=== PATIENT | male | born 1940 | race Caucasian/White ===

== ENCOUNTER → 2017-04-26 | Outpatient (CLI) | payer OTHER ==
[~2017-04-26] MED LIST: ASPI325T39 PO; ATOR10TA88 PO; HYDR25TA4 PO; POTA10CA28 PO; QUIN40TA18 PO
[2017-04-26 13:05] LABS: ALT/SGPT 56 U/L (12-78); AST/SGOT 155 U/L (15-37); BLOOD UREA NITROGEN 11 mg/dl (7-18); BUN/CREATININE RATIO 22.6 (10-20); CALCIUM 8.8 mg/dl (8.5-10.1); CARBON DIOXIDE 30 mmol/L (21-32); CHLORIDE 97 mmol/L (98-107); GLUCOSE 72 mg/dl (70-99); POTASSIUM 3.7 mmol/L (3.5-5.1); SODIUM 134 mmol/L (136-145)
[2017-04-26 13:06] LABS: ALB/GLOB RATIO 0.4 (0.9-2); ALKALINE PHOSPHATASE 386 U/L (45-117); CHOLESTEROL 111 mg/dl (0-200); CHOLESTEROL/HDL RATIO 5.6; HDL CHOLESTEROL 20 mg/dl; LDL CHOLESTEROL CALCULATED 76 mg/dl; TRIGLYCERIDES 73 mg/dl (0-150); VERY LOW DENSITY LIPOPROT CALC 15 mg/dl
[2017-04-27 14:20] LABS: ALBUMIN 2.1 G/DL (3.8-4.8); GAMMA GLOBULIN 1.3 G/DL (0.8-1.7); IMMUNOFIXATION IGA SERUM 630 MG/DL (81-463); IMMUNOFIXATION IGG SERUM 1290 MG/DL (694-1618); IMMUNOFIXATION IGM SERUM 154 MG/DL (48-271); TOTAL PROTEIN 5.7 G/DL (6.2-8.3)
== END | disposition home or self-care (01) ==
LOC: C.LABPVFM 07:08
PROVIDERS: ATTEND Family Medicine
DX: E78.5 Hyperlipidemia, unspecified (principal); E87.6 Hypokalemia; R77.1 Abnormality of globulin; I10 Essential (primary) hypertension

== ENCOUNTER → 2017-05-12 | Outpatient (CLI) | payer OTHER ==
--- NOTE | 2017-05-12 10:02 | DIAGNOSTIC IMAGING REPORT ---
CHEST 2 VIEWS ROUTINE CLINICAL HISTORY: 76 years-old Male presenting with ELEVATED BILIRUBIN EDEMA. TECHNIQUE: PA and lateral views of the chest were obtained. COMPARISON: None. FINDINGS: Atherosclerosis of aortic arch. Cardiac silhouette normal in size. Elevation of the bilateral hemidiaphragms, greater on the right. Minimal right basilar opacity likely with trace right pleural effusion. No pneumothorax. Degenerative changes of the thoracic spine. Cholecystectomy clips may be present IMPRESSION: 1. Minimal right basilar opacity likely atelectasis with trace right pleural effusion. Electronically signed by: Chandu Doan M.D. 05/12/2017 10:01 AM Dictated Date/Time: 05/12/2017 10:00 AM
--- NOTE | 2017-05-12 10:06 | DIAGNOSTIC IMAGING REPORT ---
KUB HISTORY: ELEVATED BILIRUBIN . EDEMA COMPARISON: None. FINDINGS: A few mildly distended gas-filled loops of small bowel within the right side the abdomen and a nondistended gas-filled stomach. Degenerative changes and mild levoscoliosis within the lumbar spine. No renal calculi. No ureteral calculi. No pneumoperitoneum or pneumatosis. IMPRESSION: A few mildly distended gas-filled loops of small bowel at the right side the abdomen and a nondistended gas-filled stomach. This is nonspecific but favors a mild ileus. A partial small bowel obstruction could also have a similar appearance in the appropriate clinical setting. Electronically signed by: Darrion Moreno M.D. 05/12/2017 10:05 AM Dictated Date/Time: 05/12/2017 10:03 AM
[2017-05-12 12:07] LABS: BASO % 0.2 %; BASO ABS # 0.04 K/uL (0-0.2); COMPLETE YES; EOS % 0.4 %; IG% 0.6 %; LYMPH % 6.3 %; LYMPH ABS # 1.21 K/uL (1.2-3.4); MEAN CELL VOLUME 98.8 fL (80-100); MEAN CORPUSCULAR HEMOGLOBIN 34.8 pg (25-34); MEAN CORPUSCULAR HGB CONC 35.2 g/dl (32-36); MEAN PLATELET VOLUME 10.6 fL (7.4-10.4); MONO % 12.5 %; PLATELET COUNT 211 K/uL (130-400); RED BLOOD COUNT 4.86 M/uL (4.7-6.1); WHITE BLOOD COUNT 19.07 K/uL (4.8-10.8)
[2017-05-12 12:49] LABS: ALT/SGPT 58 U/L (12-78); AST/SGOT 158 U/L (15-37); BLOOD UREA NITROGEN 18 mg/dl (7-18); BUN/CREATININE RATIO 27.4 (10-20); CALCIUM 9.1 mg/dl (8.5-10.1); CARBON DIOXIDE 27 mmol/L (21-32); CHLORIDE 99 mmol/L (98-107); CREATININE 0.65 mg/dl (0.60-1.40); GLUCOSE 134 mg/dl (70-99); POTASSIUM 4.2 mmol/L (3.5-5.1); SODIUM 136 mmol/L (136-145)
[2017-05-12 12:51] LABS: LYME DISEASE AB IGG POS (NEG); LYME DISEASE AB IGM EQUIVOCAL (NEG)
[2017-05-12 12:59] LABS: ALB/GLOB RATIO 0.4 (0.9-2); ALKALINE PHOSPHATASE 301 U/L (45-117)
[2017-05-17 04:46] LABS: 18KDIGG BAND REACTIVE (NONREACTIVE); 23KDIGG BAND REACTIVE (NONREACTIVE); 23KDIGM BAND REACTIVE (NONREACTIVE); 28KDIGG BAND NONREACTIVE (NONREACTIVE); 30KDIGG BAND NONREACTIVE (NONREACTIVE); 39KDIGG BAND REACTIVE (NONREACTIVE); 39KDIGM BAND NONREACTIVE (NONREACTIVE); 41KDIGG BAND REACTIVE (NONREACTIVE); 41KDIGM BAND REACTIVE (NONREACTIVE); 45KDIGG BAND REACTIVE (NONREACTIVE); 58KDIGG BAND REACTIVE (NONREACTIVE); 66KDIGG BAND REACTIVE (NONREACTIVE); 93KDIGG BAND NONREACTIVE (NONREACTIVE)
== END | disposition home or self-care (01) ==
LOC: C.RADPV 09:35
PROVIDERS: ATTEND Family Medicine
DX: R60.9 Edema, unspecified (principal); R17 Unspecified jaundice; R74.8 Abnormal levels of other serum enzymes

== ENCOUNTER → 2017-05-17 | Outpatient (CLI) | payer OTHER ==
--- NOTE | 2017-05-17 11:19 | DIAGNOSTIC IMAGING REPORT ---
ABDOMINAL ULTRASOUND, RIGHT UPPER QUADRANT HISTORY: Elevated liver enzymes. COMPARISON: KUB May 12, 2017. FINDINGS: A right pleural effusion is incidentally noted. There is made of a small to moderate amount of abdominal ascites. The liver is markedly abnormal in appearance. The liver is heterogeneous with dysmorphic appearance. This raises the possibility of cirrhosis. There are multiple suspected hepatic lesions which measure up to approximately 3.5 cm. No biliary ductal dilatation is present. The pancreas is largely obscured. No gallstones are noted. Mild gallbladder wall thickening is noted. There is no right hydronephrosis. There is a 3.9 cm right renal cyst. IMPRESSION: 1. Markedly abnormal appearance of the liver which is heterogeneous and nodular. The findings suggest cirrhosis. Multiple suspected hepatic lesions are worrisome for a neoplastic process. A follow-up three-phase CT of the liver is recommended. 2. Small to moderate abdominal ascites. Incidentally noted right pleural effusion. 3. Mild gallbladder wall thickening, a nonspecific finding. No gallstones. Electronically signed by: Joel Oconnor M.D. 05/17/2017 11:18 AM Dictated Date/Time: 05/17/2017 11:12 AM
== END | disposition home or self-care (01) ==
LOC: C.ULTR 09:31
PROVIDERS: ATTEND Family Medicine
DX: R74.8 Abnormal levels of other serum enzymes (principal)

== ENCOUNTER → 2017-05-18 | Outpatient (CLI) | payer OTHER ==
[~2017-05-18] MED LIST changes: +OPTIRAY 320 IV PRN
--- NOTE | 2017-05-18 16:44 | DIAGNOSTIC IMAGING REPORT ---
CT OF THE ABDOMEN AND PELVIS WITH AND WITHOUT CONTRAST LIVER PROTOCOL CLINICAL HISTORY: Elevated liver enzymes. Hepatic lesions on ultrasound. COMPARISON STUDY: Right upper quadrant ultrasound May 17, 2017. TECHNIQUE: Unenhanced, arterial and venous phase imaging was performed. Injection of 116 cc of Optiray 320 IV was uneventful. A dose lowering technique was utilized adhering to the principles of ALARA. CT DOSE: 2455.62 mGycm FINDINGS: Visualized portions of the lower chest partially visualize a moderate right pleural effusion. A small amount of calcified thrombus within segmental pulmonary arteries of the right lower lobe reflects chronic thrombus. Innumerable nodules are noted within visualized portions of the lower lungs. The largest is an 8 mm cavitary right lower lobe nodule. Right lower lobe opacity favors atelectasis. Moderate to large abdominal and pelvic ascites is noted. There is no pneumatosis, free air or portal venous gas. Innumerable hypodense hepatic masses are present. Measurements are difficult to obtain given the confluent nature of the lesions. A conglomerate right hepatic lobe mass measures approximately 14.3 x 12.9 cm. Lateral segment lesion measures 5 x 4.4 cm. Segment 5/6 lesion measures 8.4 cm. There is no biliary or pancreatic ductal dilatation. There are multiple mildly enlarged upper abdominal lymph nodes. Note is made of 2 enhancing left upper quadrant pericolonic nodules that measure up to 2.1 cm. There is slight prominence of the pancreatic tail without definitive pancreatic mass. Note is made of sigmoid diverticulosis without evidence for acute diverticulitis. There is wall thickening of the distal sigmoid colon with an adjacent irregular 2.1 x 1.5 cm lesion which could reflect extension of tumor or pathologic lymph node. This is shown on axial image 385 of 516. Anasarca is noted. Several renal cysts are present. The adrenal glands are unremarkable. There is no hydronephrosis. Subtle lucency of the lateral left 10th rib is noted. The prostate gland is markedly enlarged. IMPRESSION: 1. Innumerable hepatic masses consistent with metastatic disease. Metastatic colon cancer is favored given suspected distal sigmoid colon mass. 2. Innumerable small nodules within visualized portions of the lungs highly suggestive of metastatic disease. Moderate right pleural effusion. 3. Moderate to large abdominal and pelvic ascites. 4. Small chronic calcified segmental pulmonary emboli within the right lower lobe. 5. Two indeterminate left upper quadrant pericolonic enhancing lesions which are indeterminate but may reflect pathologic lymph nodes. Mild upper abdominal lymphadenopathy. 6. Possible lytic left 10th rib lesion. Electronically signed by: Joel Oconnor M.D. 05/18/2017 4:42 PM Dictated Date/Time: 05/18/2017 4:03 PM
== END | disposition home or self-care (01) ==
LOC: C.CTS 15:23
PROVIDERS: ATTEND Family Medicine
DX: J90 Pleural effusion, not elsewhere classified (principal); K76.9 Liver disease, unspecified; R74.8 Abnormal levels of other serum enzymes

== ENCOUNTER 2017-06-23 10:03 | Inpatient (IN) | payer OTHER ==
[~2017-06-23] VITALS: Ht 175.3 cm; Wt 91.5 kg
[~2017-06-23 10:03] MED LIST changes: -ASPI325T39 PO; -ATOR10TA88 PO; -OPTIRAY 320 IV PRN; -QUIN40TA18 PO; +[UNRECOGNIZED DRUG - REMARK] PO
[2017-06-23 10:10] VITALS: O2SAT 96
[2017-06-23] MEDS ORDERED: PIPERACILLIN/TAZOBACTAM 4.5 GM/100ML D5W IV STA (10:11)
[2017-06-23] MEDS ORDERED: SODIUM CHLORIDE 0.9% 1000ML 1,000 ML IV ONE (10:11)
[2017-06-23] MEDS ORDERED: DAPTOmycin IV 600 MG in SODIUM CHLORIDE 0.9% 50ML 50 ML IV STA (10:15)
--- NOTE | 2017-06-23 10:23 | EMERGENCY ROOM VISIT NOTE ---
History Report prepared by Linda: José Luis Mg Under the Supervision of: Dr. Rodger Golden M.D. First contact with patient: 10:10 Chief Complaint: EDEMA TO EXTREMITY Stated Complaint: LYME DISEASE History of Present Illness The patient is a 76 year old male who presents to the Emergency Room with complaints of worsening weakness for the past two weeks. The patient's family states that the patient was found in his house this morning, and he was very weak. He was found with the heat on, clothes on, and he was under blankets. The patient additionally has been having leg swelling, he was incontinent, and he has not been eating very well recently. The family states that yesterday they checked on him, and he was not doing well, so they decided to take him in to the ED today. The patient's family notes that similar episodes have happened over the past couple of months, and he had Lyme's disease a year and a half ago. The family notes that the patient had fluid drained off of his stomach two weeks ago. The patient denies any current pain. The family states that the patient has colon cancer, though he is not currently on any chemotherapy. Source of History: patient, family, nursing staff Onset: two weeks ago Position: other (global) Quality: other (weakness) Timing: worsening Note: Associated symptoms: leg swelling, incontinent Review of Systems See HPI for pertinent positives & negatives. A total of 10 systems reviewed and were otherwise negative. Past Medical & Surgical Medical Problems: (1) Metastasis from colon cancer (2) Rhabdomyolysis Social History Smoking Status: Never Smoker Alcohol Use: none Drug Use: none Marital Status: single Housing Status: lives alone Occupation Status: retired Current/Historical Medications Scheduled Potassium Chloride (Micro-K Ext Rel), 10 MEQ PO BID Miscellaneous Medications Hydrochlorothiazide (Hctz), 37.5 MG PO Spironolactone (Spironolactone) Allergies Coded Allergies: No Known Allergies (Unverified , 06/23/17) Physical Exam Vital Signs Date Time Temp Pulse Resp B/P (MAP) Pulse Ox O2 Delivery O2 Flow Rate FiO2 06/23/17 11:40 33.5 06/23/17 11:35 79 20 96 06/23/17 11:31 80/43 06/23/17 11:20 76 14 94 11/10/17 11:16 77/47 06/23/17 11:05 76 15 06/23/17 11:01 92/36 06/23/17 10:50 70 14 06/23/17 10:46 94/50 06/23/17 10:41 89/36 06/23/17 10:40 87/42 06/23/17 10:36 33.0 06/23/17 10:35 50 15 06/23/17 10:31 81/38 06/23/17 10:27 93/30 06/23/17 10:20 50 17 06/23/17 10:12 53 06/23/17 10:10 96 Room Air 06/23/17 10:06 76/50 06/23/17 10:05 33.8 110 22 76/50 92 Room Air Physical Exam GENERAL: Patient is an ill-appearing male. HEAD: Normocephalic atraumatic EYES: Ocular movements intact pupils equal and react to light OROPHARYNX mucous membranes are moist no exudates present no erythema or edema present NECK: Supple no nuchal rigidity CHEST: Good equal expansion LUNGS: Clear and equal to auscultation CARDIAC: Normal S1 and S2 ABDOMEN: Soft nontender no guarding BACK: No CVA tenderness EXTREMITIES: There are scabs on the legs. No pain upon palpation normal muscle strength in all groups no clubbing cyanosis NEURO: Patient is confused and responds to painful commands. Cranial Nerves 2- 12 grossly intact Medical Decision & Procedures ER Provider Diagnostic Interpretation: Radiology results as stated below per my review and radiologist interpretation: SINGLE VIEW CHEST CLINICAL HISTORY: Sepsis. FINDINGS: An AP, portable, upright chest radiograph is compared to study dated 05/12/2017. The examination is degraded by portable technique, apical lordotic positioning, and patient rotation. The heart is normal in size. There is pulmonary vascular congestion. There is atherosclerotic calcification of the thoracic aorta. There is a layering right pleural effusion with right basilar consolidation. A small left pleural effusion is noted. No pneumothorax is seen. The skeletal structures are osteopenic. The bony thorax is grossly intact. IMPRESSION: 1. There is pulmonary vascular congestion. 2. There is a layering right pleural effusion with associated right basilar consolidation. This likely represents atelectasis. Correlated clinically for evidence of superimposed pneumonia. 3. A small pleural effusion is seen on the left. Electronically signed by: Rian Greene M.D. 06/23/2017 10:51 AM Dictated Date/Time: 06/23/2017 10:49 AM Laboratory Results 06/23/17 10:18 Red Blood Count 4.70, Mean Corpuscular Volume 103.0, Mean Corpuscular Hemoglobin 37.2, Mean Corpuscular Hemoglobin Concent 36.2, Mean Platelet Volume 11.3, Neutrophils (%) (Auto) 84.1, Lymphocytes (%) (Auto) 4.2, Monocytes (%) ( Auto) 8.3, Eosinophils (%) (Auto) 0.1, Basophils (%) (Auto) 0.2, Neutrophils # ( Auto) 27.92, Lymphocytes # (Auto) 1.40, Monocytes # (Auto) 2.75, Eosinophils # ( Auto) 0.02, Basophils # (Auto) 0.06 06/23/17 10:18 Test 06/23/17 10:18 06/23/17 10:23 06/23/17 11:42 White Blood Count 33.17 K/uL (4.8-10.8) Red Blood Count 4.70 M/uL (4.7-6.1) Hemoglobin 17.5 g/dL (14.0-18.0) Hematocrit 48.4 % (42-52) Mean Corpuscular Volume 103.0 fL (80-100) Mean Corpuscular Hemoglobin 37.2 pg (25-34) Mean Corpuscular Hemoglobin Concent 36.2 g/dl (32-36) Platelet Count 76 K/uL (130-400) Mean Platelet Volume 11.3 fL (7.4-10.4) Neutrophils (%) (Auto) 84.1 % Lymphocytes (%) (Auto) 4.2 % Monocytes (%) (Auto) 8.3 % Eosinophils (%) (Auto) 0.1 % Basophils (%) (Auto) 0.2 % Neutrophils # (Auto) 27.92 K/uL (1.4-6.5) Lymphocytes # (Auto) 1.40 K/uL (1.2-3.4) Monocytes # (Auto) 2.75 K/uL (0.11-0.59) Eosinophils # (Auto) 0.02 K/uL (0-0.5) Basophils # (Auto) 0.06 K/uL (0-0.2) RDW Standard Deviation 80.5 fL (36.4-46.3) RDW Coefficient of Variation 21.7 % (11.5-14.5) Immature Granulocyte % (Auto) 3.1 % Immature Granulocyte # (Auto) 1.02 K/uL (0.00-0.02) Anisocytosis PRESENT Macrocytosis PRESENT Pappenheimer Bodies 1+ Echinocytes 1+ Prothrombin Time 20.4 SECONDS (9.0-12.0) Prothromb Time International Ratio 1.9 (0.9-1.1) Activated Partial Thromboplast Time 41.5 SECONDS (21.0-31.0) Partial Thromboplastin Ratio 1.6 Estimated GFR () 20.0 Estimated GFR (Non- 17.2 BUN/Creatinine Ratio 29.5 (10-20) Lactic Acid Level 9.4 mmol/L (0.4-2.0) Calcium Level 8.9 mg/dl (8.5-10.1) Total Bilirubin 11.6 mg/dl (0.2-1) Aspartate Amino Transf (AST/SGOT) 2437 U/L (15-37) Alanine Aminotransferase (ALT/SGPT) 711 U/L (12-78) Alkaline Phosphatase 463 U/L (45-117) Ammonia 28.0 umol/L (11-32) Total Creatine Kinase 557 U/L (39-308) Creatine Kinase MB 14.1 ng/ml (0.5-3.6) Creatine Kinase MB Ratio 2.5 (0-3.0) Troponin I 0.055 ng/ml (0-0.045) Total Protein 6.0 gm/dl (6.4-8.2) Albumin 1.8 gm/dl (3.4-5.0) Globulin 4.2 gm/dl (2.5-4.0) Albumin/Globulin Ratio 0.4 (0.9-2) Bedside Hemoglobin 19.4 g/dl (14.0-18.0) Bedside Hematocrit 57 % (42-52) Bedside Sodium 127 mEq/L (135-144) Bedside Potassium 7.5 mEq/L (3.3-5.0) Bedside Chloride 100 mEq/L (101-112) Bedside Total CO2 17 mEq/l (24-31) Anion Gap 19.0 mmol/L (16-25) Bedside Blood Urea Nitrogen 99 mg/dl (7-18) Bedside Creatinine 3.2 mg/dl (0.6-1.3) Bedside Glucose (other) 65 mg/dl (70-99) Bedside Ionized Calcium (Celio) 0.96 mmol/l (1.12-1.32) Lyme Disease IgG Antibody POS (NEG) Influenza Type A (RT-PCR) Neg for Influ A (NEG) Influenza Type A Antigen Neg for Influ A (NEG) Influenza Type B Antigen Neg for Influ B (NEG) Influenza Type B (RT-PCR) Neg for Influ B (NEG) Labs reviewed by ED physician. Medications Administered Medications (Trade) Dose Ordered Sig/Maurilio Route Start Time Stop Time Status Last Admin Dose Admin Sodium Chloride 1,000 ml @ 999 mls/hr Q1H1M ONCE IV 06/23/17 10:11 06/23/17 11:11 DC 06/23/17 10:38 999 MLS/HR Piperacillin Sod/ Tazobactam Sod (Zosyn Iv) 4.5 gm NOW STAT IV 06/23/17 10:11 06/23/17 10:14 DC 06/23/17 10:39 4.5 GM Daptomycin 600 mg/ Syringe 12 ml @ 6 mls/min NOW ONCE IV 06/23/17 10:30 06/23/17 10:31 DC 06/23/17 10:50 6 MLS/MIN Albuterol Sulfate (Ventolin 0.5% 2.5MG/0.5ML Neb) 2.5 mg NOW STAT INH 06/23/17 10:27 06/23/17 10:29 DC 06/23/17 10:46 2.5 MG Dextrose (Dextrose 50% 50ML Syringe) 50 ml NOW STAT IV 06/23/17 10:27 06/23/17 10:29 DC 06/23/17 10:36 50 ML Insulin Human Regular (novoLIN-R U-100 PER UNIT) 10 units NOW STAT IV 06/23/17 10:27 06/23/17 10:29 DC 06/23/17 10:49 10 UNITS Sodium Bicarbonate (Sodium Bicarbonate 8.4% Inj) 50 ml NOW STAT IV 06/23/17 10:27 06/23/17 10:29 DC 06/23/17 10:35 50 ML Calcium Gluconate (Calcium Gluconate 10%) 1,000 mg NOW STAT IV 06/23/17 10:27 06/23/17 10:29 DC 06/23/17 10:35 1,000 MG Sodium Chloride 1,000 ml @ 999 mls/hr Q1H1M STAT IV 06/23/17 10:28 06/23/17 11:28 DC 06/23/17 10:38 999 MLS/HR Sodium Chloride 1,000 ml @ 999 mls/hr Q1H1M STAT IV 06/23/17 10:42 06/23/17 11:42 DC 06/23/17 11:11 999 MLS/HR ECG Indication: weakness Rate (beats per minute): 99 Rhythm: normal sinus Findings: no acute ischemic change, prolonged QT, no ectopy ED Course 1010: Past medical records reviewed. The patient was evaluated in room A1. A complete history and physical examination was performed. 1011: Zosyn 4.5gm IV, Sodium Chloride 1000 ml @ 999 mls/hr 1027: Calcium Gluconate 10% 1000mg IV, Insulin Regular Human 10 units, Dextrose 50% 50ml IV, Ventolin 0.5% 2.5mg/ 0.5ml Neb INH 1028: Sodium Chloride 1000 ml @ 999 mls/hr IV 1030: Daptomycin 600mg 12ml @ 6mls/min IV 1042: Sodium Chloride 1000 ml @ 999 mls/hr IV 1054: I discussed the case with Dr. Cortes, ICU, and he is going to come evaluate the patient. 1103: I discussed the patient's case with Dr. Parsons, he has agreed to evaluate the patient for further management and care. Medical Decision Differential diagnosis: Etiologies such as sepsis, UTI, pneumonia, metabolic, electrolyte abnormalities , cardiac sources, intracerebral event, toxicologic, neurologic, as well as others were entertained. This is a 76-year-old male who presents emergency department in acute distress. The patient is hypotensive and tachycardic and hypothermic. A sepsis alert was immediately initiated. The patient was given 30 mL's per kilogram of fluid. He has a lactic acid of 9. He has a large elevation in his white blood cell count. The patient was pancultured up and started on broad-spectrum antibiotics. He is in acute renal failure. The case was discussed with both the ICU as well as the medicine service. He was admitted to the medicine service. Medication Reconcilliation Current Medication List: was personally reviewed by me Blood Pressure Screening Patient's blood pressure: Low blood pressure Managed by the hospitalist Consults Time Called: 1044 Consulting Physician: Dr. Cortes Returned Call: [phone] I discussed the case with Dr. Cortes, ICU, and he is going to come evaluate the patient. Additional Consults: Time Called: 1044 Consulted Physician: Dr. Parsons Returned Call: [phone] Additional Comments: I discussed the patient's case with Dr. Parsons, he has agreed to evaluate the patient for further management and care. Impression Primary Impression: Acute renal failure Additional Impressions: Hyperkalemia Sepsis Critical Care I have personally spent greater than 30 minutes of critical care time in the direct management of this patient. This includes bedside care, interpretation of diagnostic studies, and testing, discussion with consultants, patient, and family members, and other required patient management activities. This 30 minutes is in excess of all separately billable procedures. Scribe Attestation The scribe's documentation has been prepared under my direction and personally reviewed by me in its entirety. I confirm that the note above accurately reflects all work, treatment, procedures, and medical decision making performed by me. Departure Information Dispostion Being Evaluated By Hospitalist Referrals Garima Busch M.D. (PCP) Patient Instructions My [facility] Problem Qualifiers Primary Impression: Acute renal failure Acute renal failure type: unspecified Qualified Codes: N17.9 - Acute kidney failure, unspecified Additional Impressions: Sepsis Sepsis type: sepsis due to unspecified organism Qualified Codes: A41.9 - Sepsis, unspecified organism
[2017-06-23] MEDS ORDERED: ALBUTEROL 0.5% NEB SOLN 2.5 MG/0.5 ML VIAL INH STA (10:27)
[2017-06-23] MEDS ORDERED: DEXTROSE 50% 50 ML SYR IV STA (10:27)
[2017-06-23] MEDS ORDERED: SODIUM BICARB 8.4% INJ 50 MEQ/50 ML SYR IV STA (10:27)
[2017-06-23] MEDS ORDERED: NovoLIN-R INSULIN PER UNIT CHARGE IV STA (10:27)
[2017-06-23] MEDS ORDERED: CALCIUM GLUCONATE 10% 10 ML VIAL IV STA (10:27)
[2017-06-23] MEDS ORDERED: SODIUM CHLORIDE 0.9% 1000ML 1,000 ML IV STA ×2 (10:28→10:42)
[2017-06-23] MEDS ORDERED: DAPTOmycin IV 600 MG in SYRINGE 0 ML IV ONE (10:30)
[2017-06-23 10:35] LABS: ISTAT CREATININE 3.2 mg/dl (0.6-1.3); ISTAT HEMOGLOBIN 19.4 g/dl (14.0-18.0); ISTAT IONIZED CALCIUM 0.96 mmol/l (1.12-1.32)
[2017-06-23 10:50] LABS: HEMATOCRIT 48.4 % (42-52); INR 1.9 (0.9-1.1); MEAN CORPUSCULAR HEMOGLOBIN 37.2 pg (25-34); MEAN CORPUSCULAR HGB CONC 36.2 g/dl (32-36); PARTIAL THROMBOPLASTIN RATIO 1.6; PROTHROMBIN TIME (PATIENT) 20.4 SECONDS (9.0-12.0); WHITE BLOOD COUNT 33.17 K/uL (4.8-10.8)
--- NOTE | 2017-06-23 10:52 | DIAGNOSTIC IMAGING REPORT ---
SINGLE VIEW CHEST CLINICAL HISTORY: Sepsis. FINDINGS: An AP, portable, upright chest radiograph is compared to study dated 05/12/2017. The examination is degraded by portable technique, apical lordotic positioning, and patient rotation. The heart is normal in size. There is pulmonary vascular congestion. There is atherosclerotic calcification of the thoracic aorta. There is a layering right pleural effusion with right basilar consolidation. A small left pleural effusion is noted. No pneumothorax is seen. The skeletal structures are osteopenic. The bony thorax is grossly intact. IMPRESSION: 1. There is pulmonary vascular congestion. 2. There is a layering right pleural effusion with associated right basilar consolidation. This likely represents atelectasis. Correlated clinically for evidence of superimposed pneumonia. 3. A small pleural effusion is seen on the left. Electronically signed by: Rian Greene M.D. 06/23/2017 10:51 AM Dictated Date/Time: 06/23/2017 10:49 AM
[2017-06-23 11:12] LABS: ALT/SGPT 711 U/L (12-78); BLOOD UREA NITROGEN 98 mg/dl (7-18); BUN/CREATININE RATIO 29.5 (10-20); CALCIUM 8.9 mg/dl (8.5-10.1); CARBON DIOXIDE 14 mmol/L (21-32); CHLORIDE 95 mmol/L (98-107); CREATININE 3.33 mg/dl (0.60-1.40); GLUCOSE 64 mg/dl (70-99); POTASSIUM 7.1 mmol/L (3.5-5.1); SODIUM 130 mmol/L (136-145)
[2017-06-23 11:13] LABS: MEAN PLATELET VOLUME 11.3 fL (7.4-10.4); PLATELET COUNT 76 K/uL (130-400)
[2017-06-23] MEDS ORDERED: SPR25 (11:13)
[2017-06-23 11:15] LABS: ANISOCYTOSIS PRESENT; BASO % 0.2 %; BASO ABS # 0.06 K/uL (0-0.2); COMPLETE YES; ECHINOCYTES 1+; EOS % 0.1 %; IG% 3.1 %; LYMPH % 4.2 %; MONO % 8.3 %; NEUT % 84.1 %
[2017-06-23 11:21] LABS: ALB/GLOB RATIO 0.4 (0.9-2); ALKALINE PHOSPHATASE 463 U/L (45-117); AST/SGOT 2437 U/L (15-37); CKMB/CK RATIO 2.5 (0-3.0)
[2017-06-23 11:47] LABS: LYME DISEASE AB IGG POS (NEG); LYME DISEASE AB IGM EQUIVOCAL (NEG)
--- NOTE | 2017-06-23 12:11 | History and Physical ---
History & Physical Date & Time of Service: Jun 23, 2017 at 12:11 Chief Complaint: Lyme Disease Primary Care Physician: Garima Busch M.D. History of Present Illness This is a 76 yo male who was initally called for an ICU admission. However, patient states that he wants to be COMFORT MEASURES ONLY. Discussed with ICU team. Palliative care consulted. Order for comfort measures placed Social History Smoking Status: Never Smoker Drug Use: none Marital Status: single Occupational Status: retired Multi-Drug Resistant Organisms History of MDRO: No Allergies Coded Allergies: No Known Allergies (Unverified , 06/23/17) Home Medications Scheduled Potassium Chloride (Micro-K Ext Rel), 10 MEQ PO BID Miscellaneous Medications Hydrochlorothiazide (Hctz), 37.5 MG PO Spironolactone (Spironolactone) Physical Exam Vital Signs Date Time Temp Pulse Resp B/P (MAP) Pulse Ox O2 Delivery O2 Flow Rate FiO2 06/23/17 11:40 33.5 06/23/17 11:35 79 20 96 06/23/17 11:31 80/43 06/23/17 11:20 76 14 94 06/23/17 11:16 77/47 06/23/17 11:05 76 15 06/23/17 11:01 92/36 06/23/17 10:50 70 14 06/23/17 10:46 94/50 06/23/17 10:41 89/36 06/23/17 10:40 87/42 06/23/17 10:36 33.0 06/23/17 10:35 50 15 06/23/17 10:31 81/38 06/23/17 10:27 93/30 06/23/17 10:20 50 17 06/23/17 10:12 53 06/23/17 10:10 96 Room Air 06/23/17 10:06 76/50 06/23/17 10:05 33.8 110 22 76/50 92 Room Air Diagnostics Laboratory Results Results Past 24 Hours Test 06/23/17 10:18 06/23/17 10:23 06/23/17 11:42 Range/Units White Blood Count 33.17 4.8-10.8 K/uL Red Blood Count 4.70 4.7-6.1 M/uL Hemoglobin 17.5 14.0-18.0 g/dL Hematocrit 48.4 42-52 % Mean Corpuscular Volume 103.0 80-100 fL Mean Corpuscular Hemoglobin 37.2 25-34 pg Mean Corpuscular Hemoglobin Concent 36.2 32-36 g/dl Platelet Count 76 130-400 K/uL Mean Platelet Volume 11.3 7.4-10.4 fL Neutrophils (%) (Auto) 84.1 % Lymphocytes (%) (Auto) 4.2 % Monocytes (%) (Auto) 8.3 % Eosinophils (%) (Auto) 0.1 % Basophils (%) (Auto) 0.2 % Neutrophils # (Auto) 27.92 1.4-6.5 K/uL Lymphocytes # (Auto) 1.40 1.2-3.4 K/uL Monocytes # (Auto) 2.75 0.11-0.59 K/uL Eosinophils # (Auto) 0.02 0-0.5 K/uL Basophils # (Auto) 0.06 0-0.2 K/uL RDW Standard Deviation 80.5 36.4-46.3 fL RDW Coefficient of Variation 21.7 11.5-14.5 % Immature Granulocyte % (Auto) 3.1 % Immature Granulocyte # (Auto) 1.02 0.00-0.02 K/uL Anisocytosis PRESENT Macrocytosis PRESENT Pappenheimer Bodies 1+ Echinocytes 1+ Prothrombin Time 20.4 9.0-12.0 SECONDS Prothromb Time International Ratio 1.9 0.9-1.1 Activated Partial Thromboplast Time 41.5 21.0-31.0 SECONDS Partial Thromboplastin Ratio 1.6 Sodium Level 130 136-145 mmol/L Potassium Level 7.1 3.5-5.1 mmol/L Chloride Level 95 98-107 mmol/L Carbon Dioxide Level 14 21-32 mmol/L Anion Gap 20.0 19.0 16-25 mmol/L Blood Urea Nitrogen 98 7-18 mg/dl Creatinine 3.33 0.60-1.40 mg/dl Estimated GFR () 20.0 Estimated GFR (Non- 17.2 BUN/Creatinine Ratio 29.5 10-20 Random Glucose 64 70-99 mg/dl Lactic Acid Level 9.4 0.4-2.0 mmol/L Calcium Level 8.9 8.5-10.1 mg/dl Total Bilirubin 11.6 0.2-1 mg/dl Aspartate Amino Transf (AST/SGOT) 2437 15-37 U/L Alanine Aminotransferase (ALT/SGPT) 711 12-78 U/L Alkaline Phosphatase 463 45-117 U/L Ammonia 28.0 11-32 umol/L Total Creatine Kinase 557 39-308 U/L Creatine Kinase MB 14.1 0.5-3.6 ng/ml Creatine Kinase MB Ratio 2.5 0-3.0 Troponin I 0.055 0-0.045 ng/ml Total Protein 6.0 6.4-8.2 gm/dl Albumin 1.8 3.4-5.0 gm/dl Globulin 4.2 2.5-4.0 gm/dl Albumin/Globulin Ratio 0.4 0.9-2 Bedside Hemoglobin 19.4 14.0-18.0 g/dl Bedside Hematocrit 57 42-52 % Bedside Sodium 127 135-144 mEq/L Bedside Potassium 7.5 3.3-5.0 mEq/L Bedside Chloride 100 101-112 mEq/L Bedside Total CO2 17 24-31 mEq/l Bedside Blood Urea Nitrogen 99 7-18 mg/dl Bedside Creatinine 3.2 0.6-1.3 mg/dl Bedside Glucose (other) 65 70-99 mg/dl Bedside Ionized Calcium (Celio) 0.96 1.12-1.32 mmol/l Lyme Disease IgG Antibody POS NEG Lyme Disease IgM Antibody EQUIVOCAL NEG Microbiology Results 06/23/17 Blood Culture, Received Pending 06/23/17 Blood Culture, Received Pending Impression VTE Prophylaxis VTE Risk Assessment Done? Y/N: Yes Risk Level: Moderate
[2017-06-23] MEDS ORDERED: MoRPHine SULFATE 2 MG/ML CARP IV PRN (12:15)
[2017-06-23] MEDS ORDERED: ATROPINE SULFATE 1% OP SOLN 5 ML BTL OP PRN (12:30)
[2017-06-23] MEDS ORDERED: LORAZEPAM 2 MG/ML 1 ML VIAL IV PRN (12:30)
[2017-06-23 13:22] LABS: INFLUENZA A PCR Neg for Influ A (NEG); INFLUENZA B PCR Neg for Influ B (NEG)
--- NOTE | 2017-06-23 14:02 | Medical Consult ---
Consultation Note Date of Service Jun 23, 2017. Consultation Note CRITICAL CARE CONSULTATION NOTE Video Editing Intern: Dr. 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 The patient follows of the [facility]. I reviewed outpatient notes and the patient apparently has refused any treatment or diagnostic procedures to determine malignancy and progression. He was referred to gastroenterology and did agree to a paracentesis. However, he refused any further treatment or intervention. The patient's brother Cesar is present and states that the patient has been declining and has been anorexic. He has noticed considerable weight loss and yellowing of skin over the past several months. He states that his brother is always been very private and did not discuss his medical condition with him. I did go back into the emergency room A-1 and discussed the patient's condition with him. He appeared to be alert and oriented 3. He knew his name, date of , month, year. He was also able to tell me that it was suspected that he had "cancer that had moved to his liver". He indicated that he had no pain but did have some shortness of breath. He further indicated that he did not want intubated and wanted no intervention or further treatment. He stated that he knew that this could "be the end" and asked that he be kept comfortable. Social history: Lives alone at home. One brother and one sister. Not . No children. Social drinker with suspected 1-2 drinks per night. No history of tobacco abuse Family history: Noncontributory Allergies: No known allergies Home Medications: Scheduled Potassium Chloride (Micro-K Ext Rel), 10 MEQ PO BID Miscellaneous Medications Hydrochlorothiazide (Hctz), 37.5 MG PO Spironolactone (Spironolactone) Physical Exam: GENERAL : Moderate distress. Jaundiced EYES: Icterus bilaterally, gaze conjugate, pupils equal and reactive NOSE: No evidence of epistaxis or septal breech MOUTH: Mucosa dry. Tongue midline. No evidence of lesion NECK: No stridor, supple LUNGS: CTA B/L, no wheezes, rales or rhonchi. Breath sounds decreased globally HEART: Regular, rate controlled ABDOMEN: Distended. Positive ascites. BS Present. No guarding or rebound tenderness. EXTREMITIES: Bilateral +2-3 LE edema NEURO: A&OX3 Diagnostics: SINGLE VIEW CHEST CLINICAL HISTORY: Sepsis. FINDINGS: An AP, portable, upright chest radiograph is compared to study dated 05/12/2017. The examination is degraded by portable technique, apical lordotic positioning, and patient rotation. The heart is normal in size. There is pulmonary vascular congestion. There is atherosclerotic calcification of the thoracic aorta. There is a layering right pleural effusion with right basilar consolidation. A small left pleural effusion is noted. No pneumothorax is seen. The skeletal structures are osteopenic. The bony thorax is grossly intact. IMPRESSION: 1. There is pulmonary vascular congestion. 2. There is a layering right pleural effusion with associated right basilar consolidation. This likely represents atelectasis. Correlated clinically for evidence of superimposed pneumonia. 3. A small pleural effusion is seen on the left. Electronically signed by: Rian Greene M.D. 06/23/2017 10:51 AM ASSESSMENT AND PLAN: End-stage disease suspected to be colon cancer with metastatic spread to the liver: Patient has refused care as an outpatient and specifically refuses intervention but wishes to be comfortable. I did discuss palliative care as well as comfort care measures to the brother and to the patient's nephew who are present. I also discussed case with Dr. Golden as well as JOSEPH Hale from palliative medicine. I then discussed patient with Dr. Parsons, admitting hospitalist who placed orders for admission to maintain palliative care and comfort care. I updated Dr. Cortes who agreed with the plan. CCT: 0 minutes Level IV inpatient bill. Greater than 30 minutes spent in review of outpatient records and discussion with attending physician, ED physician, palliative nurse , roof slater, nursing staff, and family Please refer to the addendum for further recommendations by Dr. Cortes 06/23/17 10:18 Red Blood Count 4.70, Mean Corpuscular Volume 103.0, Mean Corpuscular Hemoglobin 37.2, Mean Corpuscular Hemoglobin Concent 36.2, Mean Platelet Volume 11.3, Neutrophils (%) (Auto) 84.1, Lymphocytes (%) (Auto) 4.2, Monocytes (%) ( Auto) 8.3, Eosinophils (%) (Auto) 0.1, Basophils (%) (Auto) 0.2, Neutrophils # ( Auto) 27.92, Lymphocytes # (Auto) 1.40, Monocytes # (Auto) 2.75, Eosinophils # ( Auto) 0.02, Basophils # (Auto) 0.06 06/23/17 10:18 Test 06/23/17 10:18 06/23/17 10:23 06/23/17 11:42 White Blood Count 33.17 K/uL (4.8-10.8) Red Blood Count 4.70 M/uL (4.7-6.1) Hemoglobin 17.5 g/dL (14.0-18.0) Hematocrit 48.4 % (42-52) Mean Corpuscular Volume 103.0 fL (80-100) Mean Corpuscular Hemoglobin 37.2 pg (25-34) Mean Corpuscular Hemoglobin Concent 36.2 g/dl (32-36) Platelet Count 76 K/uL (130-400) Mean Platelet Volume 11.3 fL (7.4-10.4) Neutrophils (%) (Auto) 84.1 % Lymphocytes (%) (Auto) 4.2 % Monocytes (%) (Auto) 8.3 % Eosinophils (%) (Auto) 0.1 % Basophils (%) (Auto) 0.2 % Neutrophils # (Auto) 27.92 K/uL (1.4-6.5) Lymphocytes # (Auto) 1.40 K/uL (1.2-3.4) Monocytes # (Auto) 2.75 K/uL (0.11-0.59) Eosinophils # (Auto) 0.02 K/uL (0-0.5) Basophils # (Auto) 0.06 K/uL (0-0.2) RDW Standard Deviation 80.5 fL (36.4-46.3) RDW Coefficient of Variation 21.7 % (11.5-14.5) Immature Granulocyte % (Auto) 3.1 % Immature Granulocyte # (Auto) 1.02 K/uL (0.00-0.02) Anisocytosis PRESENT Macrocytosis PRESENT Pappenheimer Bodies 1+ Echinocytes 1+ Prothrombin Time 20.4 SECONDS (9.0-12.0) Prothromb Time International Ratio 1.9 (0.9-1.1) Activated Partial Thromboplast Time 41.5 SECONDS (21.0-31.0) Partial Thromboplastin Ratio 1.6 Estimated GFR () 20.0 Estimated GFR (Non- 17.2 BUN/Creatinine Ratio 29.5 (10-20) Lactic Acid Level 9.4 mmol/L (0.4-2.0) Calcium Level 8.9 mg/dl (8.5-10.1) Total Bilirubin 11.6 mg/dl (0.2-1) Aspartate Amino Transf (AST/SGOT) 2437 U/L (15-37) Alanine Aminotransferase (ALT/SGPT) 711 U/L (12-78) Alkaline Phosphatase 463 U/L (45-117) Ammonia 28.0 umol/L (11-32) Total Creatine Kinase 557 U/L (39-308) Creatine Kinase MB 14.1 ng/ml (0.5-3.6) Creatine Kinase MB Ratio 2.5 (0-3.0) Troponin I 0.055 ng/ml (0-0.045) Total Protein 6.0 gm/dl (6.4-8.2) Albumin 1.8 gm/dl (3.4-5.0) Globulin 4.2 gm/dl (2.5-4.0) Albumin/Globulin Ratio 0.4 (0.9-2) Bedside Hemoglobin 19.4 g/dl (14.0-18.0) Bedside Hematocrit 57 % (42-52) Bedside Sodium 127 mEq/L (135-144) Bedside Potassium 7.5 mEq/L (3.3-5.0) Bedside Chloride 100 mEq/L (101-112) Bedside Total CO2 17 mEq/l (24-31) Anion Gap 19.0 mmol/L (16-25) Bedside Blood Urea Nitrogen 99 mg/dl (7-18) Bedside Creatinine 3.2 mg/dl (0.6-1.3) Bedside Glucose (other) 65 mg/dl (70-99) Bedside Ionized Calcium (Celio) 0.96 mmol/l (1.12-1.32) Lyme Disease IgG Antibody POS (NEG) Influenza Type A (RT-PCR) Neg for Influ A (NEG) Influenza Type A Antigen Neg for Influ A (NEG) Influenza Type B Antigen Neg for Influ B (NEG) Influenza Type B (RT-PCR) Neg for Influ B (NEG) Current Inpatient Medications Medications (Trade) Dose Ordered Sig/Maurilio Route Start Time Stop Time Status Last Admin Dose Admin Morphine Sulfate (MoRPHine SULFATE INJ) 1 mg Q2H PRN IV 06/23/17 12:15 07/07/17 12:14 UNV Lorazepam (Ativan Inj) 1 mg Q2H PRN IV 06/23/17 12:30 07/23/17 12:29 UNV Atropine Sulfate (Atropine Sulfate 1% Oph Soln) 2 drops Q2H PRN OP 06/23/17 12:30 07/23/17 12:29 UNV
[2017-06-23] MEDS ORDERED: SCOPOLAMINE 1.5 MG TDSY TD SCH (14:15)
[2017-06-23 15:11] VITALS: BP 83/49; PULSE 84; TEMP 33.5; O2SAT 93; Ht 175.3 cm; Wt 91.5 kg
[2017-06-23] MEDS: CHECK SCOPOLAMINE PATCH PLACEMENT SCH (15:45)
--- NOTE | 2017-06-23 16:01 | Palliative Care Consultation ---
Consultation Date of Consultation: Jun 23, 2017. Requesting Physician: Dr. Parsons Attending Physician: Dr. Parsons Reason for Consultation: Goals of care History of Present Illness This 76 year old male patient with suspected colon cancer with probably mets to the liver presents to the hospital today with weakness, jaundice, anorexia, weight loss, and shortness of breath with exertion. Palliative care has been asked to see him to provide extra layer of care and symptom management. I met with the patient, his brother Girma, daughter, son, son-in-law, and nephew. The patient is awake, oriented x4. He has no pain, but is uncomfortable in the bed. History obtained from patient, patient's family, and record. Apparently this patient was found to have suspected colon cancer about two years ago. At that time, Mr. Stroud refused any further diagnostic procedures or any treatment. He chose not to tell his family about the findings. According to record, there are outpatient notes that indicate patient did agree to a paracentesis a couple weeks ago. He is in renal failure with creatinine 3.33, potassium >7. WBC 33k, hypothermic with oral temp 33C. CXR shows pulmonary vascular congestion. The patient expresses his wishes to the ED physician, family, critical care team and myself to not undergo any treatment or diagnostics, he only wishes to be made comfortable for end of life care. The patient's family states that they had no idea about the colon cancer or mets to the liver. They are in shock and having a hard time accepting this. Family did note that he has had recent decline, yellowing of the skin, weight loss, and increased weakness, but they were not aware of the severity of the situation. However, they want to abide by patient's wishes and not push for any aggressive medical care. Patient is admitted to [facility] for comfort care. Past Medical/Surgical History Medical History: as above Social History Smoking Status: Never Smoker History of Alcohol Use: No Drug Use: none Marital Status: single Occupation Status: retired Review of Systems Constitutional: + weight loss, + weakness, + fatigue, No fever, No chills ENT: No trouble swallowing Respiratory: + dyspnea on exertion, No cough, No shortness of breath Cardiac: + edema, No chest pain Abdomen: + problem reported (decreased appetite), No pain, No nausea, No vomiting Male : No problem reported Psychiatric: No depression symptoms, No anxiety Skin: + color change, + problem reported (edema, scabs to lower extremities.) Allergies Coded Allergies: No Known Allergies (Unverified , 06/23/17) Medications Current Inpatient Medications Medications (Trade) Dose Ordered Sig/Maurilio Route Start Time Stop Time Status Last Admin Dose Admin Morphine Sulfate (MoRPHine SULFATE INJ) 1 mg Q2H PRN IV 06/23/17 12:15 07/07/17 12:14 Lorazepam (Ativan Inj) 1 mg Q2H PRN IV 06/23/17 12:30 07/23/17 12:29 Atropine Sulfate (Atropine Sulfate 1% Oph Soln) 2 drops Q2H PRN OP 06/23/17 12:30 07/23/17 12:29 Scopolamine (Transderm-Scop Patch) 1.5 mg Q72H TD 06/23/17 14:15 07/23/17 14:14 06/23/17 14:43 1.5 MG Miscellaneous (Remove Transderm-Scop Patch) 1 ea Q72H N/A 06/26/17 14:15 07/26/17 14:14 Miscellaneous Information (Check Scopolamine Patch Placement) 1 ea QS N/A 06/23/17 16:00 07/23/17 15:59 Physical Exam Date Time Temp Pulse Resp B/P (MAP) Pulse Ox O2 Delivery O2 Flow Rate FiO2 06/23/17 15:11 33.5 84 24 83/49 93 Nasal Cannula 3.0 06/23/17 13:40 33.5 24 83/49 94 06/23/17 13:28 33.9 82 24 77/41 94 Nasal Cannula 4.0 06/23/17 13:06 79 06/23/17 12:35 33.6 06/23/17 11:40 33.5 06/23/17 11:35 79 20 96 06/23/17 11:31 80/43 06/23/17 11:20 76 14 94 06/23/17 11:16 77/47 06/23/17 11:05 76 15 06/23/17 11:01 92/36 06/23/17 10:50 70 14 06/23/17 10:46 94/50 06/23/17 10:41 89/36 06/23/17 10:40 87/42 11/10/17 10:36 33.0 06/23/17 10:35 50 15 06/23/17 10:31 81/38 06/23/17 10:27 93/30 06/23/17 10:20 50 17 06/23/17 10:12 53 06/23/17 10:10 96 Room Air 06/23/17 10:06 76/50 06/23/17 10:05 33.8 110 22 76/50 92 Room Air General Appearance: no apparent distress, + pertinent finding (appears ill and severely deconditioned) ENT: hearing grossly normal Neck: supple, no JVD Respiratory: lungs clear, no respiratory distress, no accessory muscle use Cardiovascular: regular rate, rhythm, + pertinent finding (+3-4 pitting edema to bilateral lower extremities) Abdomen: normal bowel sounds, non tender, soft, + distended Neurologic/Psychiatric: normal mood/affect, oriented x 3 Skin: + jaundice, + pertinent finding (multiple scabs and open areas to bilateral legs) Laboratory Results Last 24 Hours Test 06/23/17 10:18 06/23/17 10:23 06/23/17 11:42 White Blood Count 33.17 K/uL Red Blood Count 4.70 M/uL Hemoglobin 17.5 g/dL Hematocrit 48.4 % Mean Corpuscular Volume 103.0 fL Mean Corpuscular Hemoglobin 37.2 pg Mean Corpuscular Hemoglobin Concent 36.2 g/dl Platelet Count 76 K/uL Mean Platelet Volume 11.3 fL Neutrophils (%) (Auto) 84.1 % Lymphocytes (%) (Auto) 4.2 % Monocytes (%) (Auto) 8.3 % Eosinophils (%) (Auto) 0.1 % Basophils (%) (Auto) 0.2 % Neutrophils # (Auto) 27.92 K/uL Lymphocytes # (Auto) 1.40 K/uL Monocytes # (Auto) 2.75 K/uL Eosinophils # (Auto) 0.02 K/uL Basophils # (Auto) 0.06 K/uL RDW Standard Deviation 80.5 fL RDW Coefficient of Variation 21.7 % Immature Granulocyte % (Auto) 3.1 % Immature Granulocyte # (Auto) 1.02 K/uL Anisocytosis PRESENT Macrocytosis PRESENT Pappenheimer Bodies 1+ Echinocytes 1+ Prothrombin Time 20.4 SECONDS Prothromb Time International Ratio 1.9 Activated Partial Thromboplast Time 41.5 SECONDS Partial Thromboplastin Ratio 1.6 Sodium Level 130 mmol/L Potassium Level 7.1 mmol/L Chloride Level 95 mmol/L Carbon Dioxide Level 14 mmol/L Anion Gap 20.0 mmol/L 19.0 mmol/L Blood Urea Nitrogen 98 mg/dl Creatinine 3.33 mg/dl Estimated GFR () 20.0 Estimated GFR (Non- 17.2 BUN/Creatinine Ratio 29.5 Random Glucose 64 mg/dl Lactic Acid Level 9.4 mmol/L Calcium Level 8.9 mg/dl Total Bilirubin 11.6 mg/dl Aspartate Amino Transf (AST/SGOT) 2437 U/L Alanine Aminotransferase (ALT/SGPT) 711 U/L Alkaline Phosphatase 463 U/L Ammonia 28.0 umol/L Total Creatine Kinase 557 U/L Creatine Kinase MB 14.1 ng/ml Creatine Kinase MB Ratio 2.5 Troponin I 0.055 ng/ml Total Protein 6.0 gm/dl Albumin 1.8 gm/dl Globulin 4.2 gm/dl Albumin/Globulin Ratio 0.4 Bedside Hemoglobin 19.4 g/dl Bedside Hematocrit 57 % Bedside Sodium 127 mEq/L Bedside Potassium 7.5 mEq/L Bedside Chloride 100 mEq/L Bedside Total CO2 17 mEq/l Bedside Blood Urea Nitrogen 99 mg/dl Bedside Creatinine 3.2 mg/dl Bedside Glucose (other) 65 mg/dl Bedside Ionized Calcium (Celio) 0.96 mmol/l Lyme Disease IgG Antibody POS Lyme Disease IgM Antibody EQUIVOCAL Influenza Type A (RT-PCR) Neg for Influ A Influenza Type A Antigen Neg for Influ A Influenza Type B Antigen Neg for Influ B Influenza Type B (RT-PCR) Neg for Influ B Assessment & Plan Problem list: Weakness Fatigue THURMAN Anorexia/weight loss Jaundice Suspected colon cancer with probably mets to liver Acute renal failure Hyperkalemia Leukocytosis- blood cultures pending Goals of care (Z51.5) Palliative care recs: -Per patient's wishes, he is comfort measures only. He does not want any further diagnostic testing or medications unrelated to comfort. -Family is upset, but not angry. They would like to abide by patient's wishes and also just want him to be made comfortable. -Continue current medications as needed for comfort. Has morphine 1mg IV Q2h PRN pain or SOB, but has not required any doses thus far. This can certainly be increased if needed or if patient develops pain. -Family asked about prognosis. I informed them that this is a difficult question , but I again went over his medical problems including the acute renal failure and high potassium. They are all understanding and deny questions/concerns. -Support provided to the patient and family, especially the brother, Girma, who is struggling. -Patient lives by himself, is unable to go home at this time. Uncertain of discharge planning at this point. Thank you kindly for this consult. I will see the patient on Monday.
[2017-06-24] MEDS: CHECK SCOPOLAMINE PATCH PLACEMENT SCH ×2 (00:01→07:53)
--- NOTE | 2017-06-24 18:05 | Family Medicine Progress Note ---
Progress Note Date of Service Jun 24, 2017. Subjective Pt evaluation today including: physical exam, chart review Patient responds to hearing his name and responds to painful stimuli, but does not follow instructions (squeeze hand, blink, wiggle toes) Additional Comments: Unable to assess due to patient condition Medications patient declines medications Objective Vital Signs Date Time Temp Pulse Resp B/P (MAP) Pulse Ox O2 Delivery O2 Flow Rate FiO2 06/24/17 07:29 Nasal Cannula 3.0 Physical Exam General Appearance: + moderate distress Respiratory/Chest: chest non-tender, normal breath sounds Cardiovascular: regular rate, rhythm, no murmur Abdomen: soft Extremities: + pedal edema, + slow capillary refill, + swelling Neurologic/Psychiatric: + aphasia, + sensory deficit, + disoriented Skin: + jaundice, + mottled Laboratory Results Last Resulted 06/23/17 10:18 Red Blood Count 4.70, Mean Corpuscular Volume 103.0, Mean Corpuscular Hemoglobin 37.2, Mean Corpuscular Hemoglobin Concent 36.2, Mean Platelet Volume 11.3, Neutrophils (%) (Auto) 84.1, Lymphocytes (%) (Auto) 4.2, Monocytes (%) ( Auto) 8.3, Eosinophils (%) (Auto) 0.1, Basophils (%) (Auto) 0.2, Neutrophils # ( Auto) 27.92, Lymphocytes # (Auto) 1.40, Monocytes # (Auto) 2.75, Eosinophils # ( Auto) 0.02, Basophils # (Auto) 0.06 Last Resulted 06/23/17 10:18 Assessment and Plan 76 year old male with PMH of suspected colon cancer with probable mets to the liver, End stage liver disease, acute on chronic kidney disease, lyme disease presented to the hospital with weakness, jaundice, anorexia, weight loss, and shortness of breath with exertion, worsening over the past 2 weeks. Palliative care was brought on boardto for extra layer of care and symptom management. They met with the patient and family. The patient was awake, oriented x4. He has no pain, but is uncomfortable in the bed. Patient was found to have suspected colon cancer about two years ago. At that time, Mr. Stroud refused any further diagnostic procedures or any treatment. He chose not to tell his family about the findings. According to record, there are outpatient notes that indicate patient did agree to a paracentesis a couple weeks ago. He is in renal failure with creatinine 3.33, potassium >7. WBC 33k, hypothermic with oral temp 33C. CXR shows pulmonary vascular congestion. The patient expressed his wishes to the ED physician, family, critical care team and palliative care to not undergo any treatment or diagnostics, he only wished to be made comfortable for end of life care. When assessed this morning, patient was breathing but not responding to verbal or tactile stimuli. He continued to deteriorate throughout the morning with morphine and ativan prn, but was not required. Patient was declared at 0925. Assessment/Plan 76 y/o male h/o metastatic oncologic disease (?underlying colon Ca) presents c/ o hypothermia and progressive fatigue. Upon arrival, he was transitioned to comfort care. At time of initial evaluation, pt was unresponsive to verbal and light touch stimuli. His breathing was agonal at approx 10 breaths per minute. CTAB. S1/S2 nl RRR no MCG. At that time, we continued comfort measures with morphine and ativan as needed to maintain comfort and minimize agitation. Called back to bedside at 0925 re: unresponsive patient. Upon evaluation, patient was apneic and without pulses or breath sounds when examined over 5 minutes. Pronounced at 0925 AM. Resident Tracking Resident Involvement: Resident Care Provided Care Provided: Adult Hospital Medicine
--- NOTE | 2017-06-24 23:33 | Death Summary ---
Summary of Admission Date Jun 23, 2017 at 12:10 Date & Time of Jun 24, 2017. 0925 Cause of Uremia with metabolic acidosis Secondary Diagnoses End stage liver disease, acute on chronic kidney disease, metastatic colon cancer Hospital Course This 76 year old male patient with PMH of colon cancer with suspected liver mets , end stage liver disease, and lyme disease presented to the hospital with weakness, jaundice, anorexia, weight loss, and shortness of breath with exertion , worsening over the last 2 weeks. Patient met with palliative care: Palliative care met with family. The patient was awake, oriented x4. He had no pain, but was uncomfortable in the bed. Patient was found to have suspected colon cancer about two years ago. At that time, Mr. Stroud refused any further diagnostic procedures or any treatment. He chose not to tell his family about the findings. According to record, there are outpatient notes that indicate patient did agree to a paracentesis a couple weeks ago. He was in renal failure with creatinine 3.33, potassium >7. WBC 33k, hypothermic with oral temp 33C. CXR shows pulmonary vascular congestion. The patient expressed his wishes to the ED physician, family, critical care team and myself to not undergo any treatment or diagnostics, he only wishes to be made comfortable for end of life care. Family did note that he has had recent decline, yellowing of the skin, weight loss, and increased weakness, but they were not aware of the severity of the situation. However, they want to abide by patient's wishes and not push for any aggressive medical care. Patient was admitted for comfort care. Patient declined morphine early this morning while still lucid, and proceeded to deteriorate throughout the morning of 06/24, expiring at 0925. Copy To Garima Busch M.D.
[2017-06-27 07:40] LABS: 18KDIGG BAND REACTIVE (NONREACTIVE); 23KDIGG BAND REACTIVE (NONREACTIVE); 23KDIGM BAND REACTIVE (NONREACTIVE); 28KDIGG BAND NONREACTIVE (NONREACTIVE); 30KDIGG BAND NONREACTIVE (NONREACTIVE); 39KDIGG BAND REACTIVE (NONREACTIVE); 39KDIGM BAND NONREACTIVE (NONREACTIVE); 41KDIGG BAND REACTIVE (NONREACTIVE); 41KDIGM BAND REACTIVE (NONREACTIVE); 45KDIGG BAND REACTIVE (NONREACTIVE); 58KDIGG BAND REACTIVE (NONREACTIVE); 66KDIGG BAND REACTIVE (NONREACTIVE); 93KDIGG BAND NONREACTIVE (NONREACTIVE)
== END 2017-06-24 12:29 | disposition expired | DRG 683 ==
LOC: C.EDB 10:07 → C.4E 12:10 → ENRESERV 12:56
PROVIDERS: ADMIT Internal Medicine Sports Medicine; ATTEND Family Medicine
DX: N17.9 Acute kidney failure, unspecified (principal); E87.2 Acidosis; A69.20 Lyme disease, unspecified; C18.9 Malignant neoplasm of colon, unspecified; C78.7 Secondary malignant neoplasm of liver and intrahepatic bile duct; Z51.5 Encounter for palliative care; E87.5 Hyperkalemia; K72.90 Hepatic failure, unspecified without coma; D72.829 Elevated white blood cell count, unspecified; R63.0 Anorexia; N18.9 Chronic kidney disease, unspecified